=== PATIENT | female | born 2000 | race Caucasian/White ===

== ENCOUNTER 2022-06-08 10:15 | Emergency (ER) | payer MEDICAID, SELFPAY ==
[2022-06-08 11:46] VITALS: BP 122/65; PULSE 87; RESP 14; TEMP 36.8; O2SAT 98; BMI 30.8
--- NOTE | 2022-06-08 12:31 | ED_ITS ---
HPI - Female Genitourinary General: Chief complaint: Vaginal Bleeding Stated complaint: spotting 4 weeks Time Seen by Provider: 06/08/22 12:23 History of Present Illness: Patient comes in with vaginal bleeding. States that she had a positive home test a week or so ago. States she has been spotting for the last couple of weeks but over the last 2 days it is gotten darker and a little heavier. Denies any abdominal pain. 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 States today presented to an outside facility last night but were told that they needed an ultrasound and he could not get it there. Associated symptoms: Deny abdominal pain, headache(s) or nausea Review of Systems Const: Denies: fever(s) or body aches Eyes: Denies: change in vision or blurry vision ENMT: Denies: throat pain or odynophagia Card: Denies: chest pain or palpitations Resp: Denies: dyspnea or productive cough GI: Denies: abdominal pain, nausea or vomiting : Reports: vaginal bleeding; Denies: flank pain or dysuria Musc: Denies: neck pain or back pain Skin/Breast: Denies: rash or pruritus Neuro: Denies: headache(s) or numbness in extremities Psych: Denies: anxiety or change in appetite Endo: Denies: polyuria or excessive sweating Physical Exam Const: COMMON NORMALS: no acute distress, patient oriented x3, healthy appearing and alert HENMT: COMMON NORMALS: normocephalic and atraumatic HEAD & SCALP: normocephalic and atraumatic Eye: COMMON NORMALS: Equal, round and reactive pupils present and EOMs intact bilaterally PUPIL: Yes Equal, round and reactive pupils present Neck/C-Spine: COMMON NORMALS: full ROM and supple Resp: COMMON NORMALS: normal respiratory effort, No retractions and No use of accessory muscles Cardio: COMMON NORMALS: regular rate and regular rhythm RATE: regular rate RHYTHM: regular rhythm GI: COMMON NORMALS: Normal to inspection, nondistended, normoactive bowel sounds present, Soft to palpation and non-tender PALPATION: Yes Soft to palpation Back/Pelvis: COMMON NORMALS: thoracic and lumbar spine normal to inspection and no thoracic nor lumbar tenderness Extremity: COMMON NORMALS: normal to inspection and full ROM Neuro: COMMON NORMALS: patient oriented x3 SENSORIUM/ORIENTATION: Yes alert Psych: COMMON NORMALS: mental status grossly normal and cooperative Skin: COMMON NORMALS: no rashes or lesions noted and no wounds GENERAL SKIN EXAM: no rashes or lesions noted Course Vital Signs: Vital signs: Vital Signs Temperature 98.3 F 06/08/22 11:46 Pulse Rate 87 06/08/22 11:46 Respiratory Rate 14 06/08/22 11:46 Blood Pressure 122/65 06/08/22 11:46 Pulse Oximetry 98 06/08/22 11:46 Oxygen Delivery Me thod 06/08/22 11:46 MDM - Female Medical Decision Making Patient comes in with vaginal bleeding. States that she had a positive home test a week or so ago. States she has been spotting for the last couple of weeks but over the last 2 days it is gotten darker and a little heavier. Denies any abdominal pain. 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 States today presented to an outside facility last night but were told that they needed an ultrasound and he could not get it there. Her physical exam today is unremarkable. She states that her blood hCG last night was 21. We will recheck labs, and reassess. On reassessment I talked to the patient about the test results. Her hCG is 18. I talked her about the likelihood that this is probably going down, however she needs to have it rechecked. She continues to still have no abdominal pain. With an hCG of 18 and ultrasound will unlikely show anything useful at this theo e. Will encourage her to follow-up with [facility] as needed. Will discharge home with precautions to return for worsening or changing symptoms. Lab Data 06/08/22 12:35 06/08/22 12:35 Laboratory Results WBC 9.3 10^3/uL (4.0-10.0) 06/08/22 12:35 RBC 4.79 10^6/uL (4.1-5.3) 06/08/22 12:35 Hgb 13.2 g/dL (11.5-15.3) 06/08/22 12:35 Hct 42.5 % (37.0-47.0) 06/08/22 12:35 MCV 88.7 fl (81-99) 06/08/22 12:35 MCH 27.6 pg (28.0-34.0) L 06/08/22 12:35 MCHC 31.1 g/dL (30.0-36.0) 06/08/22 12:35 RDW 13.2 % (12.1-15.1) 06/08/22 12:35 Plt Count 475 10^3/cmm (130-400) H 06/08/22 12:35 MPV 10.0 fL (7.4-10.4) 06/08/22 12:35 Neut % (Auto) 63.2 % 06/08/22 12:35 Lymph % (Auto) 27.8 % 06/08/22 12:35 [place] % (Auto) 4.8 % 06/08/22 12:35 Eos % (Auto) 3.4 % 06/08/22 12:35 Baso % (Auto) 0.6 % 06/08/22 12:35 Neut # (Auto) 5.88 10^3/uL (1.8-7.7) 06/08/22 12:35 Lymph # (Auto) 2.6 10^3/uL (0.8-4.8) 06/08/22 12:35 [place] # (Auto) 0.5 10^3/uL (0.2-0.9) 06/08/22 12:35 Eos # (Auto) 0.3 10^3/uL (0.0-0.8) 06/08/22 12:35 Baso # (Auto) 0.1 10^3/uL (0.0-0.1) 06/08/22 12:35 Nucleated RBC % (auto) 0 % 06/08/22 12:35 Nucleated RBCs # 0.0 /100WBC 06/08/22 12:35 Sodium 137 mmol/L (136-145) 06/08/22 12:35 Potassium 4.1 mmol/L (3.5-5.1) 06/08/22 12:35 Chloride 103 mmol/L (98-107) 06/08/22 12:35 Carbon Dioxide 24 mmol/L (22-29) 06/08/22 12:35 Anion Gap 14.1 (5-19) 06/08/22 12:35 BUN 17 mg/dL (6-20) 06/08/22 12:35 Creatinine 0.6 mg/dL (0.5-0.9) 06/08/22 12:35 GFR Calculation 125.0 mL/min (90-130) 06/08/22 12:35 Glucose 99 mg/dL (65-115) 06/08/22 12:35 Calculated Osmolality 286 mOsm/kg (285-295) 06/08/22 12:35 Calcium 9.6 mg/dL (8.5-10.5) 06/08/22 12:35 Ser , Semi-Qnt 18.15 mIU/mL 06/08/22 12:35 Blood Type A Positive 06/08/22 12:35 Rho(D) Type Positive 06/08/22 12:35 Discharge Plan Discharge Patient Disposition: Home Clinical Impression: Vaginal bleeding Condition: Stable Discharge Orders: Discharge ED (Routine); Ordered 06/08/22 Ordered By: Nilton Wilson Patient Instructions: Threatened Miscarriage (ED) Coding Level of Care Code ED Yarding Engineer for Chg Fwd Exam Comprehensive
[2022-06-08 12:45] LABS: Basophils # 0.1 10^3/uL (0.0-0.1); Basophils % 0.6 %; Eosinophils # 0.3 10^3/uL (0.0-0.8); Eosinophils % 3.4 %; Hematocrit 42.5 % (37.0-47.0); Hemoglobin 13.2 g/dL (11.5-15.3); Lymphocytes # 2.6 10^3/uL (0.8-4.8); Lymphocytes % 27.8 %; Mean Corpuscular HGB Conc 31.1 g/dL (30.0-36.0); Mean Corpuscular Hemoglobin 27.6 pg (28.0-34.0); Mean Corpuscular Volume 88.7 fl (81-99); Monocytes # 0.5 10^3/uL (0.2-0.9); Monocytes % 4.8 %; Neutrophils # 5.88 10^3/uL (1.8-7.7); Neutrophils % 63.2 %; Nucleated Red Blood Cells % 0 %; Platelet Count 475 10^3/cmm (130-400); Red Blood Count 4.79 10^6/uL (4.1-5.3); Red Cell Distribution Width 13.2 % (12.1-15.1); White Blood Count 9.3 10^3/uL (4.0-10.0)
[2022-06-08 12:59] LABS: HCG Quantitative 18.15 mIU/mL
[2022-06-08 13:10] LABS: Anion Gap 14.1 (5-19); Blood Urea Nitrogen 17 mg/dL (6-20); Calcium 9.6 mg/dL (8.5-10.5); Carbon Dioxide 24 mmol/L (22-29); Chloride 103 mmol/L (98-107); Glucose 99 mg/dL (65-115); Osmolality Calculated 286 mOsm/kg (285-295); Potassium 4.1 mmol/L (3.5-5.1); Sodium 137 mmol/L (136-145)
== END 2022-06-08 13:31 | disposition home or self-care (01) ==
PROVIDERS: Emergency Provider Emergency Medicine
DX: N93.9 Abnormal uterine and vaginal bleeding, unspecified (principal)
CPT/HCPCS: 80048; 84702; 85025; 86900; 99283

== ENCOUNTER 2023-12-17 02:17 | Inpatient (IN) | payer MEDICAID, SELFPAY ==
[2023-12-17] VITALS (31 sets, daily range): BP systolic 94–126; BP diastolic 50–85; PULSE 60–103; RESP 16; TEMP 36.7–37.1; BMI 29.5
[2023-12-17 03:37] LABS: Basophils % 0.1 %; Eosinophils % 0.2 %; Hematocrit 33.2 % (36-47); Lymphocytes % 21.1 %; Mean Corpuscular HGB Conc 31.3 g/dL (30-55); Mean Corpuscular Hemoglobin 25.6 pg (27-33); Mean Corpuscular Volume 81.6 fl (85-98); Mean Platelet Volume 10.3 fL (7.4-10.4); Monocytes # 0.7 10^3/uL (0.2-0.9); Monocytes % 4.6 %; Neutrophils # 10.51 10^3/uL (1.8-7.7); Neutrophils % 73.7 %; Nucleated Red Blood Cells % 0 %; Platelet Count 423 10^3/cmm (157-399); Red Blood Count 4.07 10^6/uL (3.85-5.65); Red Cell Distribution Width 13.6 % (12.1-15.1); White Blood Count 14.27 10^3/uL (3.29-11.43)
--- NOTE | 2023-12-17 04:47 | PM.HP ---
Providers/Chief Complaint Admitting Physician: Dennis Amador MD Chief Complaint: contractions History of Present Illness Raissa Casillas is a 23 year old G6 now P3 at 39.0 weeks gestation. Her is complicated by history of asthma. The patient presented to labor and delivery for spontaneous contractions that started at approximately 9 PM on 12/16/2023. They were at [facility] when her contractions began. She decided to come to [facility] to be evaluated. She is a patient of Dr. Ji. The patient denies any chest pains, shortness of breath, nausea, vomiting, leakage of fluid, vaginal bleeding. Medications/Allergies Home Medications Medication Instructions Recorded Confirmed Last Taken Type No Known Home Medications 09/21/22 Unknown History Allergies Allergy/AdvReac Type Severity Reaction Status Date / Time No Known Allergies Allergy Verified 09/21/22 07:42 PFSH Acute PFSH: Medical History (Updated 12/17/23 @ 04:50 by Dennis Amador MD) Asthma Surgical History (Updated 12/17/23 @ 04:49 by Dennis Amador MD) Tongue tie Family History (Updated 09/21/22 @ 07:43 by Chanel Ríos) Denies family history of Diabetes CAD (coronary artery disease) Chronic kidney disease (CKD) Cancer Hypertension Stroke Social History (Updated 12/17/23 @ 04:49 by Dennis Amador MD) Smoking and tobacco/nicotine status: never used tobacco/nicotine Alcohol intake: never Substance/Drug Use: never Female Reproductive History: : 3 Vitals/I&O/Wt Last Vital Signs Pulse 81 12/17/23 04:30 BP 106/56 12/17/23 04:30 O2 Del Method Room Air 12/17/23 02:19 Weight last 48 hrs Weight 172 lb Physical Exam Narrative: General: Alert and oriented x3 Eyes: Pupils equal round and reactive to light and accommodation Mouth: Mucous membranes moist, pharynx non-erythematous Cardiac: Regular rate and rhythm without murmurs Lungs: Clear to auscultation bilaterally without wheezes, crackles or rhonchi Abdomen: Soft, non-tender, fundus consistent with gestational age Extremities: Trace edema in the bilateral lower extremities Data 12/17/23 02:55 A&P Assessment and plan (1) Intrauterine : The patient presented to labor delivery and was 5 cm upon admission. She is gareth regularly and was admitted. She was GBS negative. We are working on obtaining lab work from her primary OB. The patient requested to have no pain medication. heart tones were category 1 in the mid 140s with moderate variability and good accelerations. Contractions were every 2 to 3 minutes. Attestations Medical Necessity Statement*: The patient will be here for greater than 2 midnights due to routine intrapartum and management of labor and delivery. Coding Level of Care Code Acute Code for Chg Fwd Diagnoses Intrauterine Z34.90
--- NOTE | 2023-12-17 04:52 | PM.DELIVERY ---
Delivery Note: Date of delivery: December 17, 2023 Pre-delivery diagnoses: 1. Intrauterine at 39.0 weeks gestation 2. History of asthma 3. Spontaneous labor Post-delivery diagnoses: 1. Intrauterine status post spontaneous vaginal delivery at 39.0 weeks gestation 2. History of asthma 3. Spontaneous labor 4. Delivery of healthy male weighing 6 pounds 9 ounces with Apgars of 8 and 9 Procedure: Spontaneous vaginal delivery Delivering Physician: Dennis Amador MD Estimated blood loss (mL): 100 Findings: 1. Healthy infant male weighing 6 pounds 9 ounces with Apgars of 8 and 9 2. Intact placenta with central umbilical cord insertion site. Pre-Delivery Course: The patient began to have contractions at approximately 9 PM on 12/16/2023. She was camping at [facility] when this started. Her contractions gradually built and for this reason she presented to labor and delivery triage for further evaluation. They did not feel that she could get back to her primary doctor in [facility]. She was approximately 5 cm dilated at 2:30 AM and gareth regularly. Spontaneous rupture of membranes took place at 4:00 AM on 12/17/2023. I was contacted at 4:04 AM. The patient then made rapid change and was complete at 4:08 AM on 12/17/2023. Delivery: The patient began pushing at 4:08 AM. The infant delivered precipitously at 4:11 AM on 12/17/2023. According to nursing staff, and the head delivered and there was no nuchal cord. The rest the delivered quickly without complication. The infant was evaluated by nursing staff and was doing well and placed on the mother's chest. I arrived shortly after delivery and the umbilical cord was clamped by myself and cut by the infant's father. No cord blood was necessary. The cord was then drained of blood and traction was placed on umbilical cord and uterine massage was carried out. The placenta delivered without complication at 4:33 AM on 12/17/2023. The placenta was noted to be intact with a central umbilical cord insertion site. The uterus was massaged and the patient had very little bleeding. The cervix was inspected and no lacerations were noted. The vaginal wall was inspected and there were a few abrasions, however no lacerations that need suturing. Estimated blood loss was 100 mL. Currently both the mother and infant are doing well. History History History 6 Term 3 Miscarriages/Ectopic Living Children 3 Past Pregnancies Del. Date GA/Weeks Outcome Route Wt Inf Gender Labor Lgth Comp. Anesthesia Location 12/17/23 39 live - full term Vaginal Male 7 hrs [facility] [place] A&P Assessment and plan (1) Spontaneous vaginal delivery: Coding Level of Care Code Acute Code for Chg Fwd Diagnoses Spontaneous vaginal delivery O80
[2023-12-17] MEDS: acetaminophen 325 mg Tablet 650 MG PO (06:28)
[2023-12-17] MEDS: oxytocin 30 UNIT/500 ML BAG 600 UNIT IV (06:40)
[2023-12-17 07:08] LABS: Amphetamines Screen Urine Negative (Negative); Barbiturates Screen Urine Negative (Negative); Benzodiazepines Screen Urine Negative (Negative); Cocaine Screen Urine Negative (Negative); Opiate Screen Urine Negative (Negative); PCP Screen Urine Negative (Negative); THC Screen Urine Negative (Negative)
[2023-12-17] MEDS: PRENATAL VIT NO.130/IRON/FOLIC 1 EACH TABLET PO (07:57)
[2023-12-17] MEDS: docusate sodium 100 mg Capsule PO ×2 (07:57→17:45)
[2023-12-17] MEDS: ibuprofen 800 mg tablet PO ×3 (07:58→21:12)
[2023-12-17 17:26] LABS: Hematocrit 30.9 % (36-47); Mean Corpuscular HGB Conc 31.4 g/dL (30-55); Mean Corpuscular Hemoglobin 25.7 pg (27-33); Mean Platelet Volume 9.8 fL (7.4-10.4); Platelet Count 329 10^3/cmm (157-399); Red Blood Count 3.77 10^6/uL (3.85-5.65); Red Cell Distribution Width 13.8 % (12.1-15.1); White Blood Count 15.85 10^3/uL (3.29-11.43)
[2023-12-18] VITALS (7 sets, daily range): BP systolic 107–115; BP diastolic 59–69; PULSE 73–84; RESP 17; TEMP 35.8–36.8
--- NOTE | 2023-12-18 07:39 | PM.DCS ---
Discharge Providers Date of Admission: 12/17/23 02:17 Date of Discharge: December 18, 2023 Attending Provider at Admission: Dennis Amador MD Attending Provider at Discharge: Dennis Amador MD Primary Care Provider: Dr Ji Diagnoses at Discharge Discharge Diagnosis (1) Spontaneous vaginal delivery: Status: Acute Other Information Additional DC diagnoses/information: 1. Intrauterine status post spontaneous vaginal delivery at 39.0 weeks gestation 2. History of asthma 3. Spontaneous labor 4. Anemia 5. Delivery of healthy male weighing 6 pounds 9 ounces with Apgars of 8 and 9 Reason for Visit Reason for Visit: contractions Brief History: The patient began to have contractions at approximately 9 PM on 12/16/2023. She was camping at [facility] when this started. Her contractions gradually built and for this reason she presented to labor and delivery triage for further evaluation. They did not feel that she could get back to her primary doctor in [facility]. She was approximately 5 cm upon arrival. Hospital Course Hospital Course The patient was complete and began pushing at 4:08 AM. The infant delivered precipitously at 4:11 AM on 12/17/2023. There were no complications with the delivery. The patient's course has been routine and other than some anemia. Her hemoglobin was 9.7 after delivery. Precautions regarding anemia were discussed. The patient is to take iron twice a day for the next 2 weeks to help replenish her stores. The patient is doing well otherwise. She is ambulating, voiding, passing gas and tolerating food by mouth. Routine discharge instructions were discussed. All questions were answered. The patient will follow-up with her primary OB at 6 weeks or sooner if needed. Physical Exam Narrative: General: Alert and oriented x3 Cardiac: Regular rate and rhythm without murmurs Lungs: Clear to auscultation bilaterally without wheezes, crackles or rhonchi Abdomen: Soft, mild tenderness over uterus. The uterus is firm and 2 cm below the umbilicus. Extremities: Trace edema in the bilateral lower extremities Discharge Data Studies Completed and Pending Laboratory Results WBC 15.85 10^3/uL (3.29-11.43) H 12/17/23 17:15 RBC 3.77 10^6/uL (3.85-5.65) L 12/17/23 17:15 Hgb 9.70 g/dL (11.27-16.99) L 12/17/23 17:15 Hct 30.9 % (36-47) L 12/17/23 17:15 MCV 82.0 fl (85-98) L 12/17/23 17:15 MCH 25.7 pg (27-33) L 12/17/23 17:15 MCHC 31.4 g/dL (30-55) 12/17/23 17:15 RDW 13.8 % (12.1-15.1) 12/17/23 17:15 Plt Count 329 10^3/cmm (157-399) 12/17/23 17:15 MPV 9.8 fL (7.4-10.4) 12/17/23 17:15 Neut % (Auto) 73.7 % 12/17/23 02:55 Lymph % (Auto) 21.1 % 12/17/23 02:55 [place] % (Auto) 4.6 % 12/17/23 02:55 Eos % (Auto) 0.2 % 12/17/23 02:55 Baso % (Auto) 0.1 % 12/17/23 02:55 Neut # (Auto) 10.51 10^3/uL (1.8-7.7) H 12/17/23 02:55 Lymph # (Auto) 3.0 10^3/uL (0.8-4.8) 12/17/23 02:55 [place] # (Auto) 0.7 10^3/uL (0.2-0.9) 12/17/23 02:55 Eos # (Auto) 0.0 10^3/uL (0.0-0.8) 12/17/23 02:55 Baso # (Auto) 0.0 10^3/uL (0.0-0.1) 12/17/23 02:55 Nucleated RBC % (auto) 0 % 12/17/23 02:55 Nucleated RBCs # 0.0 /100WBC 12/17/23 02:55 Creatinine Cancelled 12/17/23 03:20 Specific [place] Cancelled 12/17/23 03:20 Urine pH Cancelled 12/17/23 03:20 Urine Oxidant Cancelled 12/17/23 03:20 Urine Opiates Screen Negative ng/mL (Negative) 12/17/23 03:20 Urine Opiates Level Cancelled 12/17/23 03:20 Urine Oxycodone Cancelled 12/17/23 03:20 U Methadone Metabolites Cancelled 12/17/23 03:20 Barbiturates Cancelled 12/17/23 03:20 Ur Barbiturates Screen Negative ng/mL (Negative) 12/17/23 03:20 Phencyclidine (PCP) Cancelled 12/17/23 03:20 Ur Phencyclidine Scrn Negative ng/mL (Negative) 12/17/23 03:20 Amphetamines Cancelled 12/17/23 03:20 Ur Amphetamines Screen Negative ng/mL (Negative) 12/17/23 03:20 Benzodiazepines Cancelled 12/17/23 03:20 U Benzodiazepines Scrn Negative ng/mL (Negative) 12/17/23 03:20 Cocaine Metabolite Cancelled 12/17/23 03:20 Urine Cocaine Screen Negative ng/mL (Negative) 12/17/23 03:20 U Marijuana (THC) Screen Negative ng/mL (Negative) 12/17/23 03:20 U Marijuana Metabolites Cancelled 12/17/23 03:20 Abn Spec Valid Drug Scn Cancelled 12/17/23 03:20 Urine Drug Screen Note Cancelled 12/17/23 03:20 Ur Drug Screen Comment Cancelled 12/17/23 03:20 Blood Type A Positive 12/17/23 02:54 Rho(D) Type Rh positive 12/17/23 02:54 Antibody Screen Negative 12/17/23 02:54 Vitals Last Vital Signs Temp 96.4 F L 12/18/23 05:24 Pulse 84 12/18/23 05:25 Resp 16 12/17/23 10:22 BP 107/59 12/18/23 05:25 O2 Del Method Room Air 12/17/23 02:19 Discharge Plan Discharge Patient Disposition: Home Condition: Good Prescriptions: New Vitamin 27 mg iron- 800 mcg Tablet 1 tab PO DAILY Qty: 30 0RF ferrous sulfate 325 mg (65 mg iron) tablet 325 mg PO BID Qty: 30 0RF ibuprofen 800 mg Tablet 800 mg PO TID Qty: 30 0RF No Action No Known Home Medications Discharge Orders: Discharge Order (Routine); Ordered 12/18/23 Ordered By: Dennis Amador Referrals: Cass Ji MD [Referring] - 6 Weeks Discharge Diet: Regular Discharge Activity: Increase activity as tolerated Patient Instructions: Depression (DC), Opioid Safety (DC), Preeclampsia and Eclampsia After Delivery (GEN), Hemorrhage (DC), OB Discharge Report, OB Food/Drug Interaction Guide, Opioid Safety, OB [facility], OB Vaginal Deliveries, Abnormal Bleeding Activity Restrictions/Additional Instructions: Nothing per vagina for 6 weeks. I would recommend showers instead of baths for the first 6 weeks. Take precaution with hot showers as they can lead to dizziness and fainting when you are anemic. Discharge Attestations Time Spent in Discharge Care*: greater than 30 min Quality Metrics Clinical Quality Measures [ No reported AMI, CVA or VTE this stay] Coding Level of Care Code Acute Code for Chg Fwd Diagnoses Spontaneous vaginal delivery O80
[2023-12-18] MEDS: ibuprofen 800 mg tablet PO (08:04)
[2023-12-18] MEDS: docusate sodium 100 mg Capsule PO (08:04)
[2023-12-18] MEDS: PRENATAL VIT NO.130/IRON/FOLIC 1 EACH TABLET PO (08:04)
== END 2023-12-18 11:11 | disposition home or self-care (01) | DRG 807 ==
LOC: OPOB 05:25 → OBGYN 05:25
PROVIDERS: Admitting Provider Family Medicine; Visit Provider Family Medicine
DX: O99.52 Diseases of the respiratory system complicating childbirth (principal); Z37.0 Single live birth; J45.909 Unspecified asthma, uncomplicated; Z3A.39 39 weeks gestation of pregnancy; O90.81 Anemia of the puerperium; D64.9 Anemia, unspecified; O62.3 Precipitate labor; O71.89 Other specified obstetric trauma
CPT/HCPCS: 36415; 59025; 59409; 80306; 85025; 85027; 86850; 86900; 99211; J2590